=== PATIENT | female | born 1940 | race Caucasian/White ===

== ENCOUNTER 2016-09-03 05:51 | Emergency (ER) | payer OTHER ==
[~2016-09-03] VITALS: Ht 165.1 cm; Wt 65.8 kg
--- NOTE | 2016-09-03 06:04 | ED NEURO DEFICIT/STROKE ---
See Addendum History of Present Illness General Chief Complaint: General Adult Stated Complaint: "I WOKE UP AND MY LEFT ARM IS HEAVY" Source: patient Exam Limitations: no limitations Vital Signs & Intake/Output Vital Signs & Intake/Output ED Intake and Output 09/04 0000 09/03 1200 Intake Total Output Total Balance Patient 145 lb Weight Triage Note: PT TO TRIAGE C/O L ARM HEAVINESS. PT STATES SHE FELT LIKE SHE SLEPT ON IT FUNNY. PT ONLY HISTORY IS HYPOTHYROIDISM. BP ON ARRIVAL 191/88. Triage Nurses Notes Reviewed? yes Onset: Abrupt Duration: hour(s):, continues in ED Timing: single episode today Severity: mild New Weakness: "LEFT ARM FEELS HEAVY" Altered Sensations: LUE Vision Problem? No Glaucoma? No Associated Symptoms: LEFT ARM FEELS HEAVY HPI: 76 yo woman in prior good health presents with left arm "heaviness" which she experienced one hour ago upon awakening. She notes her left arm feels alternatively "heavy" "cold" "numb" "somewhat weak. " She has no chest pain, shortness of breath, diaphoresis, syncopal type symptoms. She is otherwise well. (RAF JOHNSON,DEEPA Potts) Allergies Coded Allergies: No Known Allergies (09/03/16) Reconcile Medications Levothyroxine Sodium 100 MCG TABLET 100 MCG PO DAILY HYPOTHYROID (Reported) (AMANDA JOHNSON,ARAVIND) Past History Travel History Traveled to [place] past 21 day No Medical History Any Pertinent Medical History? see below for history Endocrine: hypothyroidism Pneumonia Vaccine: 10/24/07 Surgical History Surgical History: non-contributory Psychosocial History Who do you live with Spouse Services at Home None What is your primary language Bermudian Family History Hx Contributory? No (RAF JOHNSON,DEEPA Potts) Review of Systems Review of Systems Constitutional: Reports: no symptoms. EENTM: Reports: no symptoms. Respiratory: Reports: no symptoms. Cardiovascular: Reports: no symptoms. GI: Reports: no symptoms. Genitourinary: Reports: no symptoms. Musculoskeletal: Reports: no symptoms. Skin: Reports: no symptoms. Neurological/Psychological: Reports: no symptoms. Hematologic/Endocrine: Reports: no symptoms. Immunologic/Allergic: Reports: no symptoms. All Other Systems: Reviewed and Negative (RAF JOHNSON,DEEPA Potts) Physical Exam Physical Exam General Appearance: well developed/nourished, anxious, mild distress Head: atraumatic, normal appearance Eyes: Bilateral: normal appearance, PERRL, EOMI. Ears, Nose, Throat: normal ENT inspection, moist mucous membrane, hearing grossly normal Neck: normal inspection, supple, full range of motion Respiratory: normal breath sounds, chest non-tender, no respiratory distress, quiet respiration, lungs clear Cardiovascular: regular rate/rhythm Gastrointestinal: normal bowel sounds, soft, non-tender, no organomegaly Back: normal inspection, normal range of motion Extremities: normal range of motion Psychiatric: awake, alert, oriented x 3 Cranial Nerves: normal hearing, normal speech, PERRL Coordination/Gait: normal finger to nose, normal gait Motor/Sensory: no motor/sensory deficits Reflexes: 1+: bicep (R), bicep (L), knee (R), knee (L). Skin: intact, normal color, warm/dry Core Measures CVA/TIA Diagnosis: No Severe Sepsis Present: No Septic Shock Present: No (RAF JOHNSON,DEEPA Potts) Progress Differential Diagnosis: stroke, mi vs myalgia vs other. Plan of Care: Orders Procedure Date/time Status Add-on Test (ER Only) 09/03 0738 Active FREE T4 09/03 0630 Active THYROID STIMULATING HORMONE 09/03 0604 Active TROPONIN LEVEL 09/03 0604 Active PARTIAL THROMBOPLASTIN TIME 09/03 0604 Complete PROTHROMBIN TIME 09/03 0604 Complete D-DIMER 09/03 0604 Complete COMPREHENSIVE METABOLIC PANEL 09/03 0604 Active CBC WITHOUT DIFFERENTIAL 09/03 06 Complete EKG 09/03 0556 Active Laboratory Tests 09/03/16 0630: Anion Gap 10, Estimated GFR > 60, BUN/Creatinine Ratio 23.8, Glucose 92, Calcium 10.1, Total Bilirubin 0.8, AST 22, ALT 29, Alkaline Phosphatase 74, Troponin I < 0.01, Total Protein 7.4, Albumin 4.4, Globulin 3.0, Albumin/Globulin Ratio 1.5, TSH 6.600 H, Free T4 Pending, CBC w Diff NO MAN DIFF REQ, RBC 4.55, MCV 89.6, MCH 30.1, RDW 13.0, MPV 7.3 L, Gran % 51.1, Lymphocytes % 32.0, Monocytes % 7.3 , Eosinophils % 8.8 H, Basophils % 0.8, Absolute Granulocytes 3.2, Absolute Lymphocytes 2.0, Absolute Monocytes 0.5, Absolute Eosinophils 0.6, Absolute Basophils 0, PUBS MCHC 33.6 09/03/16 0628: D-Dimer Cancelled 09/03/16 0626: TSH Cancelled 09/03/16 0604: PT 11.2, INR 1.07, APTT 29, D-Dimer 220 7:20 AM Patient signed out to me by Dr. Mauro. Pending labs, cxr. Patient woke up with heavy/weak left arm. Will likely need inpatient observation for workup. 7:48 am Patient refusing to stay for for inpatient 23 hr observation. She reports no chest pain and that she is not having a stroke and does not want to stay in the hospital. She will follow up with Dr. Simpson in the office tomorrow. She reports that she will return immediately for any return of symptoms. Currently she is aymptomatic. (AMANDA JOHNSON,ARAVIND) Diagnostic Imaging: Viewed by Me: Radiology Read, CT Scan. Discussed w/RAD: Radiology Read, CT Scan. Initial ED EKG: normal axis, normal intervals, normal p-waves, normal QRS complex, normal sinus rhythm Hand-Off Endorsed To: ARAVIND PATEL MD Endorsed Time: 0700 Pending: CT, labs, Xray (RAF JOHNSON,DEEPA Potts) Radiology Impression: PATIENT: DOROTHEA BAH PRESENT AGE: 76 PATIENT ACCOUNT NO: [id number] : 41 LOCATION: [facility] ORDERING PHYSICIAN: DEEPA MAURO MD SERVICE DATE: 09/03/16 EXAM TYPE: CAT - CT HEAD WO IV CONTRAST EXAMINATION: CT HEAD WITHOUT CONTRAST CLINICAL INFORMATION: Left arm heaviness. COMPARISON: 11/01/2011 TECHNIQUE: Contiguous axial imaging was performed from the skull base to vertex without intravenous contrast. DLP: 601 mGy-cm. FINDINGS: There is no evidence of acute intracranial hemorrhage or territorial infarction. No abnormal mass effect or midline shift is seen. Gallardo to white matter differentiation is well preserved. No extra-axial fluid collections are identified. No hydrocephalus. Mild cerebellar volume loss. There is no abnormal attenuation within the brain parenchyma. The osseous structures and soft tissues are normal. The mastoid air cells and visualized portions of the paranasal sinuses are well aerated. IMPRESSION: No acute intracranial pathology. DICTATED BY: ELIER HAMMER MD DATE/TIME DICTATED:635 TAPPER SHANK:PPIPA DATE/TIME TRANSCRIBED:09/03/16635 CONFIDENTIAL, DO NOT COPY WITHOUT APPROPRIATE AUTHORIZATION. <Electronically signed in Other Vendor System> SIGNED BY: ELIER HAMMER MD 09/03/16 0642 CXR Impression: PATIENT: DOROTHEA BAH PRESENT AGE: 76 PATIENT ACCOUNT NO: [id number] : 41 LOCATION: [facility] ORDERING PHYSICIAN: DEEPA MAURO MD SERVICE DATE: 09/03/16 EXAM TYPE: RAD - XRY- PORTABLE CHEST XRAY EXAMINATION: XR PORTABLE CHEST CLINICAL INFORMATION: Cerebrovascular accident. COMPARISON: 03/05/2010. TECHNIQUE: Portable AP 90 degrees upright view of the chest was obtained. FINDINGS: Cardiac and mediastinal silhouettes are normal in appearance. The lungs and pleural spaces are clear. No acute process identified. IMPRESSION: Unremarkable examination. DICTATED BY: CA CHAMBERS MD DATE/TIME DICTATED:09/03/16731 TAPPER SHANK:PIPPA DATE/TIME TRANSCRIBED:09/03/16731 CONFIDENTIAL, DO NOT COPY WITHOUT APPROPRIATE AUTHORIZATION. <Electronically signed in Other Vendor System> SIGNED BY: CA CHAMBERS MD 09/03/16 0737 (ARAVIND PATEL MD) Departure Departure Condition: Stable Clinical Impression Primary Impression: Left upper limb pain Referrals: QUINTEN SIMPSON MD (PCP/Family) Departure Forms: Customer Survey General Discharge Information (RAF JOHNSON,DEEPA Potts) Departure Time of Disposition: 748 Disposition: HOME OR SELF CARE Additional Instructions: Follow up with Dr. Simpson in the office tomorrow. Please return to the ER for any changing or worsening symptoms. (ARAVIND PATEL MD)
--- NOTE | 2016-09-03 06:42 | CT SCAN REPORT ---
EXAMINATION: CT HEAD WITHOUT CONTRAST CLINICAL INFORMATION: Left arm heaviness. COMPARISON: 11/01/2011 TECHNIQUE: Contiguous axial imaging was performed from the skull base to vertex without intravenous contrast. DLP: 601 mGy-cm. FINDINGS: There is no evidence of acute intracranial hemorrhage or territorial infarction. No abnormal mass effect or midline shift is seen. Gallardo to white matter differentiation is well preserved. No extra-axial fluid collections are identified. No hydrocephalus. Mild cerebellar volume loss. There is no abnormal attenuation within the brain parenchyma. The osseous structures and soft tissues are normal. The mastoid air cells and visualized portions of the paranasal sinuses are well aerated. IMPRESSION: No acute intracranial pathology.
[2016-09-03 06:48] LABS: ABSOLUTE BASOPHIL COUNT 0 /CUMM (0.0-0.2); ABSOLUTE EOSINOPHIL COUNT 0.6 /CUMM (0.0-0.7); ABSOLUTE GRANULOCYTE CT 3.2 /CUMM (1.4-6.5); ABSOLUTE MONOCYTE COUNT 0.5 /CUMM (0.10-0.60); BASOPHIL % 0.8 % (0.0-2.0); EOSINOPHIL % 8.8 % (0-5); GRANULOCYTE % 51.1 % (42.2-75.2); HEMATOCRIT 40.8 % (37-47); MEAN CORPUSCULAR HGB 30.1 PG (27.0-31.0); MEAN CORPUSCULAR HGB CONC 33.6 G/DL (33.0-37.0); MEAN CORPUSCULAR VOLUME 89.6 FL (81.0-99.0); MEAN PLATELET VOLUME 7.3 FL (7.4-10.4); PLATELET COUNT 355 /CUMM (130-400); RED BLOOD CELL CT 4.55 /CUMM (4.20-5.40); WHITE BLOOD CELL COUNT 6.3 /CUMM (4.8-10.8)
[2016-09-03] MEDS ORDERED: LEVOTHYROXINE100 MC1 PO (06:55)
[2016-09-03 07:04] LABS: PT 11.2 SEC (9.4-12.5); PTT 29 SEC (25-37)
--- NOTE | 2016-09-03 07:37 | RADIOLOGY REPORT ---
EXAMINATION: XR PORTABLE CHEST CLINICAL INFORMATION: Cerebrovascular accident. COMPARISON: 03/05/2010. TECHNIQUE: Portable AP 90 degrees upright view of the chest was obtained. FINDINGS: Cardiac and mediastinal silhouettes are normal in appearance. The lungs and pleural spaces are clear. No acute process identified. IMPRESSION: Unremarkable examination.
[2016-09-03 07:53] VITALS: BP 137/80
== END 2016-09-03 08:06 ==
LOC: ERH 05:51
PROVIDERS: Pediatrics
DX: M79.602 Pain in left arm (principal)
CPT/HCPCS: 93005; 93010

== ENCOUNTER 2016-09-29 12:40 | Emergency (ER) | payer OTHER ==
[~2016-09-29] VITALS: Ht 160 cm; Wt 58.1 kg
[~2016-09-29 12:40] MED LIST: LEVOTHYROXINE100 MC1 PO
[2016-09-29 12:52] VITALS: BP 150/75
[2016-09-29] MEDS ORDERED: ZOLPIDEM TARTRA10 M1 PO (12:59)
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
== END 2016-09-29 14:21 ==
LOC: ERH 12:40
DX: R07.9 Chest pain, unspecified (principal); V49.40XA Driver injured in collision with unspecified motor vehicles in traffic accident, initial encounter; Y92.410 Unspecified street and highway as the place of occurrence of the external cause
CPT/HCPCS: 93005; 93010